=== PATIENT | female | born 1975 | race African-American/Black ===

== ENCOUNTER 2021-07-18 09:07 | Emergency (ER) | payer OTHER ==
[2021-07-18 09:22] VITALS: BP 132/82; PULSE 101; TEMP 97.7; BMI 27.3
[2021-07-18 10:59] LABS: BASO % 0.1 % (0-2.0); EOS % 1.5 % (0-4.5); HEMATOCRIT 36.5 % (32.4-45.2); HEMOGLOBIN 12.6 GM/dL (10.7-15.3); LYMPH % 24.5 % (8-40); MCH 31.2 pg (25.7-33.7); MCHC 34.5 g/dl (32.0-36.0); MEAN CELL VOLUME 90.5 fl (80-96); MEAN PLT VOLUME 8.6 fl (7.5-11.1); MONO % 9.8 % (3.8-10.2); NEUT % 64.1 % (42.8-82.8); PLATELET COUNT 183 10^3/uL (134-434); RBC 4.03 M/mm3 (3.60-5.2); RDW 13.9 % (11.6-15.6)
== END 2021-07-18 12:04 | disposition home or self-care (01) ==
LOC: JER 09:07
DX: O20.0 Threatened abortion (principal)
CPT/HCPCS: 36415; 76815-TC; 84702; 85025; 86850; 86900; 86901; 87086; 87186; 99284-25